=== PATIENT | male | born 1970 | race Caucasian/White ===

== ENCOUNTER 2021-12-06 15:59 | Emergency (ER) | payer OTHER ==
[~2021-12-06] VITALS: Ht 170.2 cm; Wt 86.2 kg
[2021-12-06 16:01] VITALS: BP 122/83
[2021-12-06] MEDS ORDERED: POLY17PO4 PO (16:39)
[2021-12-06] MEDS ORDERED: HYDR25SU38 RC (16:39)
== END 2021-12-06 17:07 | disposition home or self-care (01) ==
LOC: EDH 15:59
DX: K62.89 Other specified diseases of anus and rectum (principal); I10 Essential (primary) hypertension
CPT/HCPCS: 99282